=== PATIENT | female | born 1995 | race Caucasian/White ===

== ENCOUNTER 2018-10-24 08:55 | Emergency (ER) | payer OTHER ==
[~2018-10-24] VITALS: Ht 154.9 cm; Wt 52.2 kg
[2018-10-24] MEDS ORDERED: DOLOGESIC 500-1 EACH (09:05)
[2018-10-24] MEDS ORDERED: TUSSI PRES-B L480 ML (09:05)
[2018-10-24] MEDS ORDERED: CEPHALEXIN500 M1 (09:05)
[2018-10-24] MEDS ORDERED: GILTUSS TR TAB1 EACH (09:06)
[2018-10-24] MEDS ORDERED: DEXAMETHAS0.5 MG/51 (09:06)
== END 2018-10-24 18:39 | disposition home or self-care (01) ==
LOC: ER 08:55 → EDBD 09:03 → ER 18:39
DX: B34.9 Viral infection, unspecified (principal); B27.90 Infectious mononucleosis, unspecified without complication; E86.0 Dehydration; D64.9 Anemia, unspecified

== ENCOUNTER 2018-10-26 09:27 | Outpatient (CLI) | payer OTHER ==
[~2018-10-26 09:27] MED LIST: CEPHALEXIN500 M1; DEXAMETHAS0.5 MG/51; DOLOGESIC 500-1 EACH; GILTUSS TR TAB1 EACH; TUSSI PRES-B L480 ML
== END 2018-10-26 09:32 | disposition home or self-care (01) ==
LOC: SONOGRAMA 09:27
DX: R16.1 Splenomegaly, not elsewhere classified (principal); K80.20 Calculus of gallbladder without cholecystitis without obstruction

== ENCOUNTER 2018-10-27 13:06 | Outpatient (CLI) | payer OTHER | END 2018-10-27 13:12 | disposition home or self-care (01) | LOC: SONOGRAMA 13:06 | DX: E04.2 Nontoxic multinodular goiter (principal) ==

== ENCOUNTER 2020-02-27 10:39 | Emergency (ER) | payer OTHER ==
[~2020-02-27] VITALS: Ht 154.9 cm; Wt 55.3 kg
[2020-02-27] MEDS ORDERED: INTESTINEX680 M2 PO (12:54)
[2020-02-27] MEDS ORDERED: CLEOCIN HCL300 MG PO (12:54)
== END 2020-02-27 13:50 | disposition home or self-care (01) ==
LOC: ER 10:39
DX: L02.31 Cutaneous abscess of buttock (principal)

== ENCOUNTER 2024-09-14 09:45 | Emergency (ER) | payer OTHER ==
[~2024-09-14] VITALS: Ht 157.5 cm; Wt 59.0 kg
[~2024-09-14 09:45] MED LIST changes: +CLEOCIN HCL300 MG PO; +INTESTINEX680 M2 PO
[2024-09-14 10:46] VITALS: BP 134/84; O2SAT 100
[2024-09-14] MEDS ORDERED: KETOROLAC TROMETHAMINE 60 MG VIAL IM ONE ×2 (11:30→11:33)
== END 2024-09-14 13:31 | disposition home or self-care (01) ==
LOC: ER 09:45
DX: M25.571 Pain in right ankle and joints of right foot (principal)